=== PATIENT | female | born 1985 ===

== ENCOUNTER 2024-07-04 20:38 | Inpatient (IN) | payer MEDICAID, SELFPAY ==
--- NOTE | ~2024-07-04 | CT_ITS ---
CLINICAL HISTORY: multiple breakthrough seizures, altered mental CT head without contrast Comparison: None Findings: No intra-axial mass, midline shift, hydrocephalus, or acute hemorrhage. No significant atrophy-like change or white matter disease. The visualized paranasal sinuses and mastoid air cells are clear. The orbits are unremarkable. There is no acute skull fracture. IMPRESSION: 1. No acute intracranial findings. This document has been electronically signed by: Tiffanie Patino MD on 07/05/2024 00:28:28
--- NOTE | 2024-07-04 20:40 | ECG_ITS ---
Test Reason : SEIZURE? Blood Pressure : */* mmHG Vent. Rate : 113 BPM Atrial Rate : 113 BPM P-R Int : 164 ms QRS Dur : 94 ms QT Int : 344 ms P-R-T Axes : 62 32 7 degrees QTcB Int : 471 ms Sinus tachycardia Nonspecific ST abnormality Abnormal ECG No previous ECGs available Referred By: Raya Malik Electronically Signed By: Manuel Louis
[2024-07-04] MEDS: Naloxone HCl Nasal 4 MG SPRAY NOSTRILALT (20:44)
[2024-07-04] MEDS: Midazolam HCl 2 MG/2 ML VIAL IM (20:45)
[2024-07-04 20:49] VITALS: BP 114/77; PULSE 109; RESP 20; O2SAT 99
[2024-07-04] MEDS: Midazolam HCl 2 MG/2 ML VIAL IVPUSH (21:02)
[2024-07-04 21:03] LABS: MANUAL DIFF FLAG NO
[2024-07-04] MEDS: 0.9 % Sodium Chloride 1,000 ML 999 ML IV (21:04)
[2024-07-04 21:08] LABS: Basophils Percent Auto 0.3 % (0-2); Eosinophils Absolute Auto 0.1 X10*3/uL (0.0-0.4); Eosinophils Percent Auto 0.7 % (0-4); Hematocrit 40.1 % (37.0-47.0); Hemoglobin 13.7 g/dl (12.0-16.0); Imm Gran Abs Auto 0.02 X10*3/uL (0.00-0.03); Imm Gran Pct Auto 0.3 % (0.0-0.4); Lymphocytes Absolute Auto 1.4 X10*3/uL (1.2-4.9); Lymphocytes Percent Auto 20.5 % (20-40); Mean Corpuscular HGB Conc 34.2 g/dl (31.0-35.0); Mean Corpuscular Hemoglobin 31.8 pg (27.0-33.0); Mean Platelet Volume 9.3 fL (9.4-12.3); Monocytes Absolute Auto 0.5 X10*3/uL (0.1-1.2); Neutrophils Percent Auto 71.2 % (45-73); Platelet Count 282 X10*3/uL (160-400); Red Blood Count 4.31 X10*6/uL (4.20-5.50); Red Cell Distribution Width 14.5 % (11.0-16.0)
[2024-07-04 21:13] VITALS: BMI 32.0
--- NOTE | 2024-07-04 21:19 | PC.NURSE ---
Pt brought in from vehicle unresponsive with seizure like activity. Medications administered per APR, EKG done and pt placed on desktop support consultant. Seizure pads in place. After narcan administration, no difference in patient state.
[2024-07-04 21:31] LABS: Alanine Aminotransferase 23 U/L (0-31); Albumin Level 4.1 g/dL (3.5-5.0); Alkaline Phosphatase 56 U/L (39-117); Anion Gap 16 (12-20); Aspartate Amino Transferase 24 U/L (5-31); Bilirubin Total 0.3 mg/dL (0.0-1.0); Blood Urea Nitrogen 9 mg/dL (9-16); Calcium 8.8 mg/dL (8.4-10.2); Carbon Dioxide 19 mmol/L (22-29); Chloride 111 mmol/L (96-108); Creatinine Clr Calc Pharmacy 117.4; Estimated Glomerular Filt Rate > 60; Ethanol 81 mg/dL; Glucose Random 94 mg/dL (60-115); Lipase 23 U/L (8-78); Magnesium 1.8 mg/dL (1.6-2.6); Sodium 143 mmol/L (135-145)
--- NOTE | 2024-07-04 21:39 | ED.GENADULT ---
HPI - General Adult General Chief complaint: Seizure Stated complaint: unresponsive. felt cold / hx of epilepsy Time Seen by Provider: 07/04/24 20:40 Source: other (Partner) Mode of arrival: wheelchair Limitations: altered mental status History of Present Illness ED Provider: Rita HPI narrative: This is a 39-year-old female who presents to the ER by private car unresponsive. The patient was pulled out of the passenger seat of a car parked in front of the ER and put in his stretcher and brought back to the main ED. She would appear to have some seizure activity with slight, tonic-clonic tremors. The patient has a partner with her who drove the patient to the hospital. Apparently the patient complained of feeling cold and unwell and then began to have seizure-like activity. Apparently the patient does carry a diagnosis of epilepsy and takes Topamax The seizure-like activity started about 3 minutes prior to arrival to the ED She was immediately brought back to the emergency department going to 8 Her respirations were 8 and she had pinpoint pupils, she was given 4 mg of nasal Narcan in addition to 2 mg of Versed IM due to lack of IV access and then subsequently Versed 2 mg IV once IV access was obtained as the patient had further seizure activity Related Data Allergies Allergy/AdvReac Type Severity Reaction Status Date / Time No Known Allergies Allergy Unverified 07/04/24 21:15 Review of Systems Review of Systems: Yes Unobtainable due to mental status PMFSH Past Medical History Medical History Seizure disorder Social History Social History Unable to assess alcohol history related to: Unable to respond Use of substances other than those prescribed or required for medical reasons: Unable to respond Advance Directives: No Advance Directives Information Provided: No Physical Exam ED Vital Signs: Vital Signs - 24 hr 07/04/24 20:49 Pulse Rate 109 H Respiratory Rate 20 Blood Pressure 114/77 Pulse Oximetry 99 Oxygen Delivery Method Room Air BMI result Body Mass Index 32.0 Const General: patient obtunded Orientation/consciousness: patient obtunded HENMT Head: Yes normocephalic and Yes atraumatic Eyes Alignment and Position: alignment normal Periorbital: periorbital findings normal Eyelids: Yes eyelids normal Pupils: Pinpoint pupils Chest Chest palpation & inspection: normal inspection of the chest GI Inspection: Yes normal to inspection Skin General skin exam: no rashes or lesions noted, elasticity normal and turgor normal Neuro Other: Patient unresponsive General: patient obtunded Course Reevaluation(s) Reevaluation #1: Patient now beginning to wake up and moan, she is not speaking postictal from seizure. However she was given a loading dose of Keppra due to multiple seizures Time: 22:27 Reevaluation #2: Patient was crying and complaining that her right arm her. Her IV had infiltrated. However shortly after that she had another seizure witnessed minor did about 3 minutes. I gave an additional dose of Versed. I used ultrasound guidance to place an 18 gauge 2.5 in IV in the left upper arm Time: 00:34 Medications Administered Generic Name Dose Route Start Last Admin Trade Name Freq PRN Reason Stop Dose Admin Enoxaparin Sodium 40 mg 07/05/24 02:00 07/05/24 02:48 Enoxaparin Sodium 40 Mg/0.4 Ml Syringe SUBCUT 40 mg Q24H EFREM Administration Potassium Chloride 10 meq in 100 mls @ 100 mls/hr 07/05/24 01:30 07/05/24 02:48 Potassium Chloride/H20 IV 07/05/24 05:29 100 mls/hr Q1H EFREM Administration Discontinued Medications Generic Name Dose Route Start Last Admin Trade Name Freq PRN Reason Stop Dose Admin Sodium Chloride 1,000 mls @ 999 mls/hr 07/04/24 21:00 07/05/24 00:00 Ns IV 07/04/24 22:00 Infused .Q1H1M EFREM Infusion Sodium Chloride 1,000 mls @ 999 mls/hr 07/04/24 22:00 07/05/24 02:08 Ns IV 07/04/24 23:00 Infused .Q1H1M EFREM Infusion Levetiracetam 1,500 mg in 100 mls @ 400 mls/hr 07/04/24 22:03 07/04/24 22:30 Keppra IV 07/04/24 22:17 Infused ONCE ONE Infusion Phenytoin Sodium 1,200 mg/ 124 mls @ 100 mls/hr 07/05/24 00:51 07/05/24 03:00 Sodium Chloride IV 07/05/24 02:02 Infused ONCE ONE Infusion Midazolam HCl 2 mg 07/04/24 21:00 07/04/24 20:45 Midazolam Hcl 2 Mg/2 Ml Vial IM 07/04/24 21:01 2 mg ONCE ONE Administration Midazolam HCl 2 mg 07/04/24 21:00 07/04/24 21:02 Midazolam Hcl 2 Mg/2 Ml Vial IVPUSH 07/04/24 21:01 2 mg ONCE ONE Administration Midazolam HCl 3 mg 07/05/24 00:32 07/05/24 00:40 Midazolam Hcl 2 Mg/2 Ml Vial IVPUSH 07/05/24 00:33 3 mg ONCE ONE Administration Naloxone HCl 4 mg 07/04/24 21:00 07/04/24 20:44 Naloxone Hcl Nasal 4 Mg [place] NOSTRILALT 07/04/24 21:01 4 mg ONCE ONE Administration Medical Decision Making Medical Decision Making [facility] Narrative: 39-year-old female with apparent history of epilepsy presents for evaluation of what appears to be seizure-like disorder. The patient had some drooling,, seizure-like activity with slight movements in both the arms in the legs as well as her head. She remained unresponsive. As per HPI, she received a total of 4 mg of Versed, 2 mg IM and then 2 mg IV once IV access was established. Plan for labs, EKG, urinalysis and tox screen. The patient has a known seizure disorder and has no trauma to the head or neck, will defer CT imaging of the head at this time. Her vitals are currently stable Differential Diagnosis Differential Diagnoses: The differential diagnosis associated with the presentation includes Epilepsy Breakthrough seizure Medication noncompliance Substance abuse Seizure-like disorder Metabolic abnormality Intracranial hemorrhage Admission/Observation Consideration of admission/observation: Escalation of care including admission/observation considered Consult Healthcare Provider Management of the patient was discussed with: Hospitalist Lab Data [facility] Lab Attestation statement: I reviewed the patient's lab results. Hematology without any concerning abnormalities, chemistries significant for a potassium of 3.0, this will be repleted, a carbon dioxide of 19 renal function within normal limits, LFTs within normal limits. Troponin negative. 07/04/24 20:56 07/04/24 20:56 Labs: Lab Results 07/04/24 07/04/24 07/04/24 Range/Units 20:56 21:27 22:00 WBC 7.0 (4.8-10.8) X10*3/uL RBC 4.31 (4.20-5.50) X10*6/uL Hgb 13.7 (12.0-16.0) g/dl Hct 40.1 (37.0-47.0) % MCV 93.0 (80.0-98.0) fL MCH 31.8 (27.0-33.0) pg MCHC 34.2 (31.0-35.0) g/dl RDW 14.5 (11.0-16.0) % Plt Count 282 (160-400) X10*3/uL MPV 9.3 L (9.4-12.3) fL Immature Gran % (Auto) 0.3 (0.0-0.4) % Neut % (Auto) 71.2 (45-73) % Lymph % (Auto) 20.5 (20-40) % [place] % (Auto) 7.0 (2-11) % Eos % (Auto) 0.7 (0-4) % Baso % (Auto) 0.3 (0-2) % Lymph # (Auto) 1.4 (1.2-4.9) X10*3/uL [place] # (Auto) 0.5 (0.1-1.2) X10*3/uL Eos # (Auto) 0.1 (0.0-0.4) X10*3/uL Baso # (Auto) 0.0 (0.0-0.2) X10*3/uL Abs Immat Gran (auto) 0.02 (0.00-0.03) X10*3/uL Absolute Neuts (auto) 5.0 (2.0-8.3) x10*3/uL Absolute Nucleated RBC 0.000 (0.0-0.012) X10*3/uL Nucleated RBC % (auto) 0.0 (0.0-0.2) /100WBC Hold Purple Top SEE NOTE Hold Blue Top SEE NOTE Sodium 143 (135-145) mmol/L Potassium 3.0 L (3.3-5.1) mmol/L Chloride 111 H (96-108) mmol/L Carbon Dioxide 19 L (22-29) mmol/L Anion Gap 16 (12-20) BUN 9 (9-16) mg/dL Creatinine 0.64 (0.5-1.4) mg/dL Estim Creat Clear Calc 117.4 Estimated GFR > 60 Random Glucose 94 (60-115) mg/dL Lactic Acid 5.0 H* (0.5-2.0) mmol/L Calcium 8.8 (8.4-10.2) mg/dL Magnesium 1.8 (1.6-2.6) mg/dL Total Bilirubin 0.3 (0.0-1.0) mg/dL AST 24 (5-31) U/L ALT 23 (0-31) U/L Alkaline Phosphatase 56 (39-117) U/L Troponin I High Sens < 2.7 (<3.5-17.0) ng/L Total Protein 7.0 (6.5-8.0) g/dL Albumin 4.1 (3.5-5.0) g/dL Lipase 23 (8-78) U/L Beta HCG, Quant < 2 mIU/mL Urine Color Yellow Urine Appearance Clear Urine pH 5.0 (5.0-9.0) Ur Specific [place] 1.015 (1.005-1.025) Urine Protein Negative (Neg-Trace) mg/dL Urine Glucose (UA) Negative (Negative) mg/dL Urine Ketones Negative (Negative) mg/dL Urine Blood Negative (Negative) Urine Nitrite Negative (Negative) Ur Leukocyte Esterase Negative (Negative) Urine RBC 0-2 (0-2) /HPF Urine WBC 0-5 (0-5) /HPF Ur Squamous Epith Cells 0-2 (0-2) /HPF Urine Bacteria None Seen (None Seen) Hyaline Casts 0-2 (0-2) /LPF Urine Opiates Screen Not Detected (Not Detect) Ur Buprenorphine Scrn Not Detected (Not Detect) ng/mL Ur Oxycodone Screen Not Detected (Not Detect) ng/mL Urine Methadone Screen Not Detected (Not Detect) ng/mL Urine Fentanyl Screen Not Detected (Not Detect) Ur Barbiturates Screen Not Detected (Not Detect) Ur Phencyclidine Scrn Not Detected (Not Detect) Ur Amphetamines Screen Not Detected (Not Detect) U Benzodiazepines Scrn POSITIVE H (Not Detect) Urine Cocaine Screen Not Detected (Not Detect) U Marijuana (THC) Screen Not Detected (Not Detect) Ethyl Alcohol 81 mg/dL Influenza Type A (PCR) NEGATIVE (Negative) Influenza Type B (PCR) NEGATIVE (Negative) RSV RNA Qual (PCR) NEGATIVE (Negative) SARS-CoV-2 RNA (RT-PCR) NEGATIVE (Negative) Independent Interpretation I performed an independent interpretation of an: EKG Interpretation: Sinus tachycardia with a rate of [address] segment elevation [place] Radiology Impression Discussion of test interpretation with radiology: I have reviewed the radiologist's reading. Radiologist Impression: Findings: No intra-axial mass, midline shift, hydrocephalus, or acute hemorrhage. No significant atrophy-like change or white matter disease. The visualized paranasal sinuses and mastoid air cells are clear. The orbits are unremarkable. There is no acute skull fracture. IMPRESSION: 1. No acute intracranial findings. This document has been electronically signed by: Tiffanie Patino MD on 07/05/2024 00:28:28 Discharge Plan Discharge Clinical Impression: Breakthrough seizure Patient Disposition: Admitted As Inpatient
[2024-07-04 21:41] LABS: Troponin-I High Sensitivity < 2.7 ng/L (<3.5-17.0)
[2024-07-04 22:08] LABS: Influenza A PCR NEGATIVE (Negative); Influenza B PCR NEGATIVE (Negative); Resp Syncy Virus RNA Qual PCR NEGATIVE (Negative); SARS COV2 PCR INHOUSE NEGATIVE (Negative)
[2024-07-04 22:09] LABS: Appearance Urine Clear; Color Urine Yellow; Glucose Urine UA Negative (Negative); Leukocyte Esterase Urine Negative (Negative); Nitrite Urine Negative (Negative); Specific Gravity - Urine 1.015 (1.005-1.025); Urine Blood Negative (Negative); Urine Ketones Negative (Negative); Urine Protein Negative (Neg-Trace)
[2024-07-04] MEDS: levETIRAcetam in NaCl (iso-os) 1,500 MG/100 ML PIGGYBACK 400 MG IV (22:15)
[2024-07-04 22:17] LABS: HCG Quantitative < 2 mIU/mL
[2024-07-04 22:21] LABS: Bacteria Urine None Seen (None Seen); Hyaline Casts Urine 0-2 /LPF (0-2); RBC Urine 0-2 /HPF (0-2); Squamous Epithelial Cell Urine 0-2 /HPF (0-2); WBC Urine 0-5 /HPF (0-5)
[2024-07-04 22:23] LABS: Amphetamine Screen Urine Not Detected (Not Detect); Barbiturates, Urine Not Detected (Not Detect); Benzodiazepines Screen Urine POSITIVE (Not Detect); Buprenorphine Scr Not Detected (Not Detect); Cannabinoid Screen Urine Not Detected (Not Detect); Cocaine Screen Urine Not Detected (Not Detect); Fentanyl, urine Not Detected (Not Detect); Methadone Screen, Urine Not Detected (Not Detect); Opiate Screen Urine Not Detected (Not Detect); Oxycodone Screen Urine Not Detected (Not Detect); Phencyclidine Screen Urine Not Detected (Not Detect)
[2024-07-04 23:18] LABS: Reflex Lactate? Lactic Acid Added
[2024-07-05] VITALS (8 sets, daily range): BP systolic 92–109; BP diastolic 45–67; PULSE 52–80; RESP 14–18; TEMP 36.2–36.6; O2SAT 100
--- NOTE | 2024-07-05 | EEG_ITS ---
This is a 16-channel EEG with an EKG lead. The patient is reported awake and drowsy during the tracing. Background EEG rhythm is symmetric alpha posteriorly, lower amplitude fast anteriorly. Rare left frontal central sharp waves were noted. Cardiac lead did not reveal any significant abnormality. Photic stimulation and hyperventilation were not performed. IMPRESSION: Mildly abnormal EEG that needed further investigation with either sleep-deprived EEG or ambulatory EEG, if not done before. No active epileptic discharges were noted. MD BHAVANI Carrington/JULIO CESAR / [id number]
[2024-07-05] MEDS: 0.9 % Sodium Chloride 1,000 ML 999 ML IV (00:07)
[2024-07-05] MEDS: Midazolam HCl 2 MG/2 ML VIAL 3 MG IVPUSH (00:40)
--- NOTE | 2024-07-05 00:44 | PC.NURSE ---
Patient noted crying and complaining of pain in right upper arm IV site, IV had infiltrated. IV line removed, hot pack applied to infiltrated area. However shortly after that she had another seizure witnessed about 3 minutes. Patient given IV Versed 3mg. used ultrasound guidance to place an 18 gauge 2.5 in IV in the left upper arm, VSS.
[2024-07-05] MEDS: SODIUM CHLORIDE 0.9% IV (01:19)
[2024-07-05] MEDS: PHENYTOIN SODIUM IV (01:19)
--- NOTE | 2024-07-05 01:26 | P.HPHOSP_ITS ---
History of Present Illness Date of Service: 07/05/24 Chief Complaint: Seizure This is a 39-year-old female with pertinent history of seizure disorder, obesity who was brought to the emergency department for evaluation of altered mentation and possible seizure. Patient was minimally responsive when she was brought to the ER. Noted tonic-clonic tremors in the ER. Patient's partner drove the patient to the ER for possible seizure-like activity. Patient had 2-3 more episodes of witnessed seizure in the ER lasting for about 2-3 minutes. She did regain consciousness between seizure episodes. Unable to obtain history from the patient as she is postictal at the time of my evaluation. History obtained from ER provider and chart review. Unable to obtain review of systems. In the emergency department, CT head without acute abnormality. Patient was given IV Keppra and IV phenytoin in the ER along with Versed. Review of Systems 2 Review of Systems: Yes Unobtainable due to mental status PMFSH Medical History Seizure disorder Pertinent family history: Unable to obtain Social History Unable to assess alcohol history related to: Unable to respond Use of substances other than those prescribed or required for medical reasons: Unable to respond Advance Directives: No Advance Directives Information Provided: No Meds Allergies Allergy/AdvReac Type Severity Reaction Status Date / Time No Known Allergies Allergy Unverified 07/04/24 21:15 Active Medications: Current Medications Phenytoin Sodium 1,200 mg/ (Sodium Chloride) 124 mls @ 100 mls/hr IV ONCE ONE Stop: 07/05/24 02:02 Last Admin: 07/05/24 01:19 Dose: 100 mls/hr Physical Exam 2 Vital Signs and Narrative: Vital Signs: Last Vital Signs Pulse 109 H 07/04/24 20:49 Resp 20 07/04/24 20:49 BP 114/77 07/04/24 20:49 Pulse Ox 99 07/04/24 20:49 O2 Del Method Room Air 07/04/24 20:49 BMI result Body Mass Index 32.0 Middle-aged female lying in bed in no distress Neck supple, no JVD Regular rate and rhythm, S1-S2 heard Regular breath sounds bilaterally, no wheezing or crackles appreciated Abdomen soft nontender, no guarding, no rigidity Patient is only responsive to painful stimulus No pedal edema Results Labs 07/04/24 20:56 07/04/24 20:56 Labs: Laboratory Results - last 24 hr 07/04/24 07/04/24 07/04/24 20:56 21:27 22:00 MCV 93.0 MCH 31.8 MCHC 34.2 RDW 14.5 Plt Count 282 MPV 9.3 L Immature Gran % (Auto) 0.3 Neut % (Auto) 71.2 Lymph % (Auto) 20.5 [place] % (Auto) 7.0 Eos % (Auto) 0.7 Baso % (Auto) 0.3 Lymph # (Auto) 1.4 [place] # (Auto) 0.5 Eos # (Auto) 0.1 Baso # (Auto) 0.0 Abs Immat Gran (auto) 0.02 Absolute Neuts (auto) 5.0 Absolute Nucleated RBC 0.000 Nucleated RBC % (auto) 0.0 Hold Purple Top SEE NOTE Hold Blue Top SEE NOTE Anion Gap 16 Estim Creat Clear Calc 117.4 Estimated GFR > 60 Random Glucose 94 Lactic Acid 5.0 H* Calcium 8.8 Magnesium 1.8 Total Bilirubin 0.3 AST 24 ALT 23 Alkaline Phosphatase 56 Total Protein 7.0 Albumin 4.1 Lipase 23 Beta HCG, Quant < 2 Urine Color Yellow Urine Appearance Clear Urine pH 5.0 Ur Specific [place] 1.015 Urine Protein Negative Urine Glucose (UA) Negative Urine Ketones Negative Urine Blood Negative Urine Nitrite Negative Ur Leukocyte Esterase Negative Urine RBC 0-2 Urine WBC 0-5 Ur Squamous Epith Cells 0-2 Urine Bacteria None Seen Hyaline Casts 0-2 Urine Opiates Screen Not Detected Ur Buprenorphine Scrn Not Detected Ur Oxycodone Screen Not Detected Urine Methadone Screen Not Detected Urine Fentanyl Screen Not Detected Ur Barbiturates Screen Not Detected Ur Phencyclidine Scrn Not Detected Ur Amphetamines Screen Not Detected U Benzodiazepines Scrn POSITIVE H Urine Cocaine Screen Not Detected U Marijuana (THC) Screen Not Detected Ethyl Alcohol 81 Influenza Type A (PCR) NEGATIVE Influenza Type B (PCR) NEGATIVE RSV RNA Qual (PCR) NEGATIVE SARS-CoV-2 RNA (RT-PCR) NEGATIVE Assessment and Plan (1) Breakthrough seizure: Status: Acute Plan This is a 39-year-old female with pertinent history of seizure disorder, obesity who was brought to the emergency department for evaluation of altered mentation and possible seizure. #. Multiple breakthrough generalized tonic-clonic seizures in a patient with seizure disorder: Patient did regain consciousness between seizure episodes in the ER as per ER provider. Seizure activity lasted for about 2 minutes. Patient given IV Keppra and IV phenytoin in the ER. Will admit patient and consult Neurology. EEG pending. On Topamax at home. #. Acute encephalopathy, postictal in the setting of above: NPO until mentation improves #. Hypokalemia: Repleted #. Acute lactic acidosis due to seizure. No sepsis #. Obesity class 1: On tirzepatide Med rec pending DVT prophylaxis: Lovenox Full code Admit as inpatient and will require two night minimum hospital stay for close monitoring of mentation, titration of antiepileptics (as above), which is not possible in a lesser acute setting. Specialist consult pending Quality Stroke Does the patient have a stroke diagnosis?: No VTE Prior VTE?: No VTE Risk Level:: Medical - moderate - high VTE Device Contraindication: Treatment Not Indicated VTE Drug Contraindication: N/A - Med Ordered
[2024-07-05 02:28] LABS: ~Lactic Acid-LAB USE ONLY 1.6 mmol/L (0.5-2.0)
[2024-07-05] MEDS: Potassium Chloride/H20 10 MEQ/100 ML PIGGYBACK 100 MEQ IV ×4 (02:47→04:10)
[2024-07-05] MEDS: Enoxaparin Sodium 40 MG/0.4 ML SYRINGE SUBCUT (02:48)
[2024-07-05 06:38] LABS: MANUAL DIFF FLAG NO
[2024-07-05 07:08] LABS: Basophils Percent Auto 0.3 % (0-2); Eosinophils Absolute Auto 0.1 X10*3/uL (0.0-0.4); Eosinophils Percent Auto 0.6 % (0-4); Hematocrit 38.3 % (37.0-47.0); Hemoglobin 12.9 g/dl (12.0-16.0); Imm Gran Abs Auto 0.02 X10*3/uL (0.00-0.03); Imm Gran Pct Auto 0.3 % (0.0-0.4); Lymphocytes Absolute Auto 2.2 X10*3/uL (1.2-4.9); Lymphocytes Percent Auto 28.4 % (20-40); Mean Corpuscular HGB Conc 33.7 g/dl (31.0-35.0); Mean Corpuscular Hemoglobin 31.6 pg (27.0-33.0); Mean Corpuscular Volume 93.9 fL (80.0-98.0); Mean Platelet Volume 9.8 fL (9.4-12.3); Monocytes Absolute Auto 0.4 X10*3/uL (0.1-1.2); Monocytes Percent Auto 5.3 % (2-11); Neutrophils Absolute Auto 5.1 x10*3/uL (2.0-8.3); Neutrophils Percent Auto 65.1 % (45-73); Platelet Count 192 X10*3/uL (160-400); Red Blood Count 4.08 X10*6/uL (4.20-5.50); Red Cell Distribution Width 14.7 % (11.0-16.0); White Blood Count 7.9 X10*3/uL (4.8-10.8)
--- NOTE | 2024-07-05 07:25 | PHA.MEDREC ---
Pharmacy Consult ? Medication Reconciliation Pharmacy has completed the medication reconciliation. Spoke to patient at bedside. She was able to tell med that she only takes Topiramate and confirmed she takes one 50mg perez in the morning and two in the evening. She states she doesn't take Zepbound anymore, though it was filled at the beginning of the month.
[2024-07-05 09:03] LABS: Anion Gap 8 (12-20); Blood Urea Nitrogen 6 mg/dL (9-16); Calcium 7.8 mg/dL (8.4-10.2); Carbon Dioxide 21 mmol/L (22-29); Chloride 115 mmol/L (96-108); Creatinine Clr Calc Pharmacy 136.6; Estimated Glomerular Filt Rate > 60; Glucose Random 84 mg/dL (60-115); Potassium 4.3 mmol/L (3.3-5.1); Sodium 140 mmol/L (135-145)
[2024-07-05 10:28] LABS: Glucose, Whole Blood 91 mg/dL (60-115)
--- NOTE | 2024-07-05 10:51 | PM.NEUROCN ---
History of Present Illness Data of Consult Service Date: 07/05/24 Primary Care Provider: Unknown Physician HPI Reason for consult: Seizure 39 years old woman who came to emergency room apparently after a seizure-like episode. She said that she followed a neurologist in [place] and was prescribed Topamax for seizure disorder but has not been taking it. She denied having headaches. Her previous medical records and details were not available. When I asked her what happened during the seizure, she said she did not know. Apparently she was noted to have generalized shaking type of episodes an in between episode she regained consciousness. There was no physical injury or incontinence or tongue bite. Review of Systems Review of Systems: No recent cold or flu-like PMFSH Past Medical History Medical History Seizure disorder Social History Social History Unable to assess alcohol history related to: Unable to respond Patient Tobacco Use Status: Tobacco use Unknown Use of substances other than those prescribed or required for medical reasons: Unable to respond Advance Directives: No Advance Directives Information Provided: No Nutrition Risks: No Nutritional Risk Meds Allergies Allergy/AdvReac Type Severity Reaction Status Date / Time No Known Allergies Allergy Unverified 07/04/24 21:15 Active Medications: Current Medications Acetaminophen (Acetaminophen 325 Mg Tablet) 650 mg PO Q6H PRN PRN Reason: Pain, Mild 1-3,fever,headache Calcium Carbonate (Calcium Carbonate 750 Mg Tab.Chew) 750 mg PO Q4H PRN PRN Reason: Heartburn Enoxaparin Sodium (Enoxaparin Sodium 40 Mg/0.4 Ml Syringe) 40 mg SUBCUT Q24H [facility] Last Admin: 07/05/24 02:48 Dose: 40 mg Magnesium Hydroxide (Milk Of Magnesia 30 Ml Oral.Susp) 30 ml PO DAILY PRN PRN Reason: Constipation Melatonin (Melatonin 3 Mg Tablet) 6 mg PO BEDTIME PRN PRN Reason: Insomnia Ondansetron HCl (Ondansetron Hcl 4 Mg/2 Ml Vial) 4 mg IVPUSH Q8H PRN PRN Reason: Nausea and Vomiting Sodium Chloride (0.9 % Sodium Chloride Flush 3 Ml Syringe) 3 ml IVFLUSH QSHIFT [facility] Last Admin: 07/05/24 07:24 Dose: Not Given Home Medications ?Medication ?Instructions ?Recorded ?Confirmed ?Last Taken ?Type albuterol sulfate 90 mcg/actuation 2 puff inhalation Q4-6H PRN 07/05/24 07/05/24 07/03/24 History aerosol inhaler wheezing topiramate 50 mg tablet 50 mg PO DAILY 07/05/24 07/05/24 07/03/24 History topiramate 50 mg tablet 100 mg PO BEDTIME 07/05/24 07/05/24 07/03/24 History Physical Exam Vital Signs: Vital Signs: Last Vital Signs Temp 97.1 F 07/05/24 09:28 Pulse 80 07/05/24 09:28 Resp 18 07/05/24 09:28 BP 109/45 L 07/05/24 09:28 Pulse Ox 100 07/05/24 09:28 O2 Del Method Room Air, [place]erv[place] ir Nasal Cannula 07/05/24 09:28 O2 Flow Rate 2 07/05/24 07:15 BMI result Body Mass Index 32.0 Neuro: Other: She is alert and awake with normal spontaneity of speech fluency comprehension and affect. Face is symmetrical. Visual jhaveri are full. There was no focal weakness. Plantars are flexor. Deep tendon reflexes are 1+. Speech is normal. Results Labs 07/05/24 06:32 07/05/24 08:15 Labs: Short CBC 07/04/24 07/05/24 Range/Units 20:56 06:32 WBC 7.0 7.9 (4.8-10.8) X10*3/uL Hgb 13.7 12.9 (12.0-16.0) g/dl Hct 40.1 38.3 (37.0-47.0) % Plt Count 282 192 D (160-400) X10*3/uL BMP 07/04/24 07/05/24 20:56 08:15 Sodium 143 140 Potassium 3.0 L 4.3 D Chloride 111 H 115 H Carbon Dioxide 19 L 21 L BUN 9 6 L Creatinine 0.64 0.55 Calcium 8.8 7.8 L D Liver Function 07/04/24 Range/Units 20:56 Total Bilirubin 0.3 (0.0-1.0) mg/dL AST 24 (5-31) U/L ALT 23 (0-31) U/L Alkaline Phosphatase 56 (39-117) U/L Albumin 4.1 (3.5-5.0) g/dL Urine 07/04/24 Range/Units 22:00 Urine Color Yellow Urine Appearance Clear Urine pH 5.0 (5.0-9.0) Ur Specific [place] 1.015 (1.005-1.025) Urine Protein Negative (Neg-Trace) mg/dL Urine Glucose (UA) Negative (Negative) mg/dL Noncontrast head CT did not reveal any significant abnormality. Assessment and Plan (1) Seizure disorder: Status: Acute Epileptic versus nonepileptic seizure disorder. I would recommend getting her previous records to get a better opinion about her situation as she has a neurologist. Otherwise she reported taking topiramate 150 mg a day and a temporary prescription can be given until she sees her neurologist for follow-up. She should be advised to not drive and be careful about activity such as swimming alone or sitting in a soaking tub alone to avoid any accidents. Procedures Date of Service Date of Service: 07/05/24
--- NOTE | 2024-07-05 11:06 | PC.NURSE ---
patient going to EEG via transport
--- NOTE | 2024-07-05 14:01 | MHC.CM.PN ---
pt lives with her roommate she is she is independent has own ride home when dcd pts pcp is dr romero in [facility] plan home n/s
--- NOTE | 2024-07-05 14:27 | PM.DS ---
DS: Providers Provider Date of Service: 07/05/24 Date of admission: 07/05/24 00:54 Date of discharge: 07/05/24 Primary care physician: Unknown Physician Consults: 07/05/24 01:25 Consult to Neurology Routine Consulting Provider: [facility] Reason for consultation: breakthrough seizures DS: Diagnosis Discharge Diagnosis (1) Seizure disorder: Status: Acute DS: Summary Hospital Course Hospital Course: 39-year-old female with pertinent history of seizure disorder, obesity who was brought to the emergency department for evaluation of altered mentation and possible seizure. Patient was minimally responsive when she was brought to the ER. Noted tonic-clonic tremors in the ER. Patient's partner drove the patient to the ER for possible seizure-like activity. Patient had 2-3 more episodes of witnessed seizure in the ER lasting for about 2-3 minutes. She did regain consciousness between seizure episodes. Unable to obtain history from the patient as she is postictal at the time of my evaluation. History obtained from ER provider and chart review. In the emergency department, CT head without acute abnormality. Patient was given IV Keppra and IV phenytoin in the ER along with Versed. Hospital course Patient admitted to general medical floor. Head CTA unremarkable. Seen by Neurology on the day of discharge. Patient states she has not seen her neurologist in some time and has been off her Topamax. Neurology felt that she could resume her Topamax be DC to follow up with her primary neurologist. She had no further seizures since admission Time Attestation Discharge Coordination Time (in mins): 35 Quality: Safe Use of Opioids Does Pt have an Active Cancer Diagnosis on the Problem List?: No Quality: Stroke Does the patient have a stroke diagnosis?: No Physical Exam Vital Signs: Vital Signs: Last Vital Signs Temp 97.8 F 07/05/24 12:46 Pulse 60 07/05/24 12:46 Resp 18 07/05/24 12:46 BP 108/63 07/05/24 12:46 Pulse Ox 100 07/05/24 12:46 O2 Del Method Nasal Cannula 07/05/24 12:46 O2 Flow Rate 2 07/05/24 12:46 BMI result Body Mass Index 32.0 Const: Other: Awake alert no acute distress Resp: Other: Clear to auscultation bilaterally no rales rhonchi wheezes Cardio: Other: No S4; positive S1-S2; no S3 murmurs rubs or gallops GI: Other: Soft nontender nondistended normoactive bowel sounds Neuro: Other: Cranial nerves 2-12 grossly intact as tested. Motor is 5/5 all extremities. Sensation is intact. Cognition appropriate Extrem: Other: No edema bilaterally DS: Data Data Completed and Pending Labs on day of discharge: Laboratory Results - last 24 hr 07/04/24 07/04/24 07/04/24 20:56 21:07 21:27 WBC 7.0 RBC 4.31 Hgb 13.7 Hct 40.1 MCV 93.0 MCH 31.8 MCHC 34.2 RDW 14.5 Plt Count 282 MPV 9.3 L Immature Gran % (Auto) 0.3 Neut % (Auto) 71.2 Lymph % (Auto) 20.5 [place] % (Auto) 7.0 Eos % (Auto) 0.7 Baso % (Auto) 0.3 Lymph # (Auto) 1.4 [place] # (Auto) 0.5 Eos # (Auto) 0.1 Baso # (Auto) 0.0 Abs Immat Gran (auto) 0.02 Absolute Neuts (auto) 5.0 Absolute Nucleated RBC 0.000 Nucleated RBC % (auto) 0.0 Hold Purple Top SEE NOTE Hold Blue Top SEE NOTE Sodium 143 Potassium 3.0 L Chloride 111 H Carbon Dioxide 19 L Anion Gap 16 BUN 9 Creatinine 0.64 Estim Creat Clear Calc 117.4 Estimated GFR > 60 POC Glucose 91 Random Glucose 94 Lactic Acid 5.0 H* Lactic Acid F/U @ 2Hr Calcium 8.8 Magnesium 1.8 Total Bilirubin 0.3 AST 24 ALT 23 Alkaline Phosphatase 56 Troponin I High Sens < 2.7 Total Protein 7.0 Albumin 4.1 Lipase 23 Beta HCG, Quant < 2 Urine Color Urine Appearance Urine pH Ur Specific [place] Urine Protein Urine Glucose (UA) Urine Ketones Urine Blood Urine Nitrite Ur Leukocyte Esterase Urine RBC Urine WBC Ur Squamous Epith Cells Urine Bacteria Hyaline Casts Urine Opiates Screen Ur Buprenorphine Scrn Ur Oxycodone Screen Urine Methadone Screen Urine Fentanyl Screen Ur Barbiturates Screen Ur Phencyclidine Scrn Ur Amphetamines Screen U Benzodiazepines Scrn Urine Cocaine Screen U Marijuana (THC) Screen Ethyl Alcohol 81 Influenza Type A (PCR) NEGATIVE Influenza Type B (PCR) NEGATIVE RSV RNA Qual (PCR) NEGATIVE SARS-CoV-2 RNA (RT-PCR) NEGATIVE 07/04/24 07/05/24 07/05/24 22:00 02:02 06:32 WBC 7.9 RBC 4.08 L Hgb 12.9 Hct 38.3 MCV 93.9 MCH 31.6 MCHC 33.7 RDW 14.7 Plt Count 192 D MPV 9.8 Immature Gran % (Auto) 0.3 Neut % (Auto) 65.1 Lymph % (Auto) 28.4 [place] % (Auto) 5.3 Eos % (Auto) 0.6 Baso % (Auto) 0.3 Lymph # (Auto) 2.2 [place] # (Auto) 0.4 Eos # (Auto) 0.1 Baso # (Auto) 0.0 Abs Immat Gran (auto) 0.02 Absolute Neuts (auto) 5.1 Absolute Nucleated RBC 0.000 Nucleated RBC % (auto) 0.0 Hold Purple Top Hold Blue Top Sodium Potassium Chloride Carbon Dioxide Anion Gap BUN Creatinine Estim Creat Clear Calc Estimated GFR POC Glucose Random Glucose Lactic Acid Lactic Acid F/U @ 2Hr 1.6 Calcium Magnesium Total Bilirubin AST ALT Alkaline Phosphatase Troponin I High Sens Total Protein Albumin Lipase Beta HCG, Quant Urine Color Yellow Urine Appearance Clear Urine pH 5.0 Ur Specific [place] 1.015 Urine Protein Negative Urine Glucose (UA) Negative Urine Ketones Negative Urine Blood Negative Urine Nitrite Negative Ur Leukocyte Esterase Negative Urine RBC 0-2 Urine WBC 0-5 Ur Squamous Epith Cells 0-2 Urine Bacteria None Seen Hyaline Casts 0-2 Urine Opiates Screen Not Detected Ur Buprenorphine Scrn Not Detected Ur Oxycodone Screen Not Detected Urine Methadone Screen Not Detected Urine Fentanyl Screen Not Detected Ur Barbiturates Screen Not Detected Ur Phencyclidine Scrn Not Detected Ur Amphetamines Screen Not Detected U Benzodiazepines Scrn POSITIVE H Urine Cocaine Screen Not Detected U Marijuana (THC) Screen Not Detected Ethyl Alcohol Influenza Type A (PCR) Influenza Type B (PCR) RSV RNA Qual (PCR) SARS-CoV-2 RNA (RT-PCR) 07/05/24 08:15 WBC RBC Hgb Hct MCV MCH MCHC RDW Plt Count MPV Immature Gran % (Auto) Neut % (Auto) Lymph % (Auto) [place] % (Auto) Eos % (Auto) Baso % (Auto) Lymph # (Auto) [place] # (Auto) Eos # (Auto) Baso # (Auto) Abs Immat Gran (auto) Absolute Neuts (auto) Absolute Nucleated RBC Nucleated RBC % (auto) Hold Purple Top Hold Blue Top Sodium 140 Potassium 4.3 D Chloride 115 H Carbon Dioxide 21 L Anion Gap 8 L BUN 6 L Creatinine 0.55 Estim Creat Clear Calc 136.6 Estimated GFR > 60 POC Glucose Random Glucose 84 Lactic Acid Lactic Acid F/U @ 2Hr Calcium 7.8 L D Magnesium Total Bilirubin AST ALT Alkaline Phosphatase Troponin I High Sens Total Protein Albumin Lipase Beta HCG, Quant Urine Color Urine Appearance Urine pH Ur Specific [place] Urine Protein Urine Glucose (UA) Urine Ketones Urine Blood Urine Nitrite Ur Leukocyte Esterase Urine RBC Urine WBC Ur Squamous Epith Cells Urine Bacteria Hyaline Casts Urine Opiates Screen Ur Buprenorphine Scrn Ur Oxycodone Screen Urine Methadone Screen Urine Fentanyl Screen Ur Barbiturates Screen Ur Phencyclidine Scrn Ur Amphetamines Screen U Benzodiazepines Scrn Urine Cocaine Screen U Marijuana (THC) Screen Ethyl Alcohol Influenza Type A (PCR) Influenza Type B (PCR) RSV RNA Qual (PCR) SARS-CoV-2 RNA (RT-PCR) Discharge Plan Discharge Anticipated Discharge Date/Time: 07/05/24 14:24 Patient Disposition: Home, Self-Care Discharge Diagnosis: Breakthrough seizure Referrals: Physician,Unknown J [Primary Care Provider] - 1 Week Discharge Medications: Continued albuterol sulfate 90 mcg/actuation HFA aerosol inhaler 2 puff inhalation Q4-6H PRN (Reason: wheezing) topiramate 50 mg tablet 50 mg PO DAILY topiramate 50 mg tablet 100 mg PO BEDTIME Discharge Orders: Discharge Order (Routine); Ordered 07/05/24 Ordered By: Shahram Hall Diet: Advance to usual diet Activity on Discharge: As tolerated Stand Alone Forms: Patient Portal Discharge page Print Language: Unable To Collect Care Plan Goals: Restart Topamax 50 mg in the morning and 100 mg in the evening Health Concerns: Follow up with your neurologist next available Plan of Treatment: Continue all other medications as taken prior to the hospital Assessment: See discharge summary
--- NOTE | 2024-07-05 14:43 | MHC.CM.PN ---
PT CLEARED TO CO HOME WITH NO SERVICES REFERR[place] [facility] [place] NO FURTHER CM INTERVENTION REQUIRED PT TO ARRANGE TRANSPORT
--- NOTE | 2024-07-06 10:28 | MHC.CM.PN ---
pt dcd home self care
== END 2024-07-05 14:50 | disposition home or self-care (01) | DRG 53 ==
LOC: HO.ED 22:08 → HO.EDOVER 07-05 01:30 → HO.S3 07-05 13:37 → HO.EDOVER 07-05 13:46
PROVIDERS: Physician Assistant; Admitting Provider Student in an Organized Health Care Education/Training Program; Emergency Provider Emergency Medicine Emergency Medical Services; Visit Provider Hospitalist
DX: G40.909 Epilepsy, unspecified, not intractable, without status epilepticus (principal); E87.21 Acute metabolic acidosis; E66.811 Obesity, class 1; E87.6 Hypokalemia; T42.6X6A Underdosing of other antiepileptic and sedative-hypnotic drugs, initial encounter; Z71.3 Dietary counseling and surveillance; Z68.32 Body mass index [BMI] 32.0-32.9, adult; Z20.822 Contact with and (suspected) exposure to COVID-19
CPT/HCPCS: 0241U; 36415; 70450; 80048; 80053; 80307; 81001; 82947; 83605; 83690; 83735; 84484; 84702; 85025; 93005; 95816; 99285; J1165; J1650; J1953; J2250; J3480

== ENCOUNTER → 2024-07-04 20:40 | Outpatient (BNV) | payer MEDICAID, SELFPAY | PROVIDERS: Admitting Provider Student in an Organized Health Care Education/Training Program; Emergency Provider Emergency Medicine Emergency Medical Services; Visit Provider Internal Medicine Cardiovascular Disease | DX: R00.0 Tachycardia, unspecified (principal) | CPT/HCPCS: 93010 ==

== ENCOUNTER → 2024-07-04 23:15 | Outpatient (BNV) | payer SELFPAY | PROVIDERS: Emergency Provider Emergency Medicine Emergency Medical Services; Visit Provider Specialist | DX: R56.9 Unspecified convulsions (principal); R41.82 Altered mental status, unspecified | CPT/HCPCS: 70450 ==

== ENCOUNTER → 2024-07-05 00:54 | Outpatient (BNV) | payer MEDICAID, SELFPAY | PROVIDERS: Admitting Provider Student in an Organized Health Care Education/Training Program; Emergency Provider Emergency Medicine Emergency Medical Services; Visit Provider Student in an Organized Health Care Education/Training Program | DX: G40.909 Epilepsy, unspecified, not intractable, without status epilepticus (principal); G40.919 Epilepsy, unspecified, intractable, without status epilepticus | CPT/HCPCS: 99235; 99499 ==

== ENCOUNTER → 2024-07-05 00:54 | Outpatient (BNV) | payer SELFPAY | PROVIDERS: Admitting Provider Student in an Organized Health Care Education/Training Program; Emergency Provider Emergency Medicine Emergency Medical Services; Visit Provider Psychiatry & Neurology Neurology | DX: G40.909 Epilepsy, unspecified, not intractable, without status epilepticus (principal) | CPT/HCPCS: 99222 ==